=== PATIENT | female | born 1975 | race Hispanic/Latino ===

== ENCOUNTER → 2023-03-11 | Outpatient (CLI) | payer OTHER | END | disposition home or self-care (01) | LOC: RAH 07:27 | PROVIDERS: ATTEND Internal Medicine Gastroenterology | DX: R10.13 Epigastric pain (principal); R11.2 Nausea with vomiting, unspecified | CPT/HCPCS: 78264; A9541 ==

== ENCOUNTER → 2023-07-29 | Outpatient (CLI) | payer OTHER | END | disposition home or self-care (01) | LOC: RAH 10:33 | PROVIDERS: ATTEND Family Medicine | DX: Z12.31 Encounter for screening mammogram for malignant neoplasm of breast (principal) | CPT/HCPCS: 77067 ==